=== PATIENT | female | born 1960 ===

== ENCOUNTER 2023-11-27 05:36 | Day surgery (SDC) | payer OTHER ==
[2023-11-22 10:58] VITALS: BP 122/86
[2023-11-22 10:58] LABS: PH,URINE 6.5 (5.0-8.0); URINE APPEARANCE Clear; URINE BILIRRUBIN Negative (NEGATIVE); URINE BLOOD Negative; URINE COLOR Yellow; URINE GLUCOSE Negative (NEGATIVE); URINE KETONE Negative (NEGATIVE); URINE LEUKOCYTE Negative; URINE NITRATE Negative; URINE PROTEIN Negative (NEGATIVE)
[2023-11-22 10:59] LABS: URINE BACTERIA 30.2 uL (0.0-1933); URINE EPITHELIAL CELLS 7.2 uL (0.0-38.8); URINE RBC 6.2 uL (0.0-20.8)
[2023-11-22 11:01] LABS: HEMATOCRIT 44.1 % (36.0-45.00); HEMOGLOBIN 15.1 g/dL (12.0-15.00); MEAN CELL VOLUME 90.4 fL (80.00-100.00); MEAN CORPUSCULAR HEMOGLOBIN 30.9 pg (27.00-32.0); MEAN CORPUSCULAR HGB CONC 34.2 g/dl (32.0-36.0); PLATELET COUNT 184 K/uL (150-450); RED BLOOD COUNT 4.87 M/uL (4.00-6.00); RED CELL DISTRIBUTION WIDTH 13.2 % (11.5-14.5)
[2023-11-22 11:03] LABS: URINE CAST 0.15 uL (0.0-1.40)
[2023-11-22 11:25] LABS: PARTIAL THROMBOPLASTIN TIME 25.6 SECONDS (22.0-34.0); PROTHROMBIN TIME 10.9 SECONDS (9.0-11.5)
[2023-11-22 11:35] LABS: BILIRUBIN TOTAL 0.5 mg/dL (0.3-1.2); CALCIUM 9.3 mg/dL (8.5-10.1); CREATININE SERUM 0.7 mg/dL (0.55-1.02); GFR 85.07; GLOBULINA 3.1 G/DL (2.4-3.5); POTASSIUM 4.03 mEq/L (3.5-5.1); TOTAL PROTEIN 7.1 gm/dL (6.4-8.2)
[~2023-11-27] VITALS: Ht 166.4 cm; Wt 79.4 kg
[~2023-11-27 05:36] MED LIST: COZAAR100 MG PO; CRESTOR40 MG PO; EFFEXOR XR150 MG PO; HYDROCHLOROTHIA25 MG PO; NABUMETONE750 MG PO; SYNTHROID88 MCG PO
[2023-11-27] MEDS ORDERED: CEFAZOLIN SODIUM 1,000 MG VIAL ONE (12:22)
[2023-11-27] MEDS ORDERED: BUPIVACAINE HCL/Mpf 0.5% 10ML VIAL ONE (12:22)
[2023-11-27] MEDS ORDERED: METHYLPREDNISOLONE ACETATE 80 MG/ML VIAL ONE (13:19)
[2023-11-27] MEDS ORDERED: CEFAZOLIN SODIUM 1,000 MG VIAL IV ONE (13:45)
[2023-11-27] MEDS ORDERED: METHYLPREDNISOLONE ACETATE 80 MG/ML VIAL IJ ONE (13:45)
[2023-11-27] MEDS ORDERED: BUPIVACAINE HCL/PF 0.25% 30ML VIAL InF ONE (13:45)
[2023-11-27] MEDS ORDERED: ISOPROPYL ALCOHOL 30 ML OUNCE TOP ONE (13:45)
== END 2023-11-27 16:25 | disposition home or self-care (01) ==
LOC: U 05:36 → CIR.AMB 05:36
PROVIDERS: ATTEND Orthopaedic Surgery Hand Surgery
DX: S63.302A Traumatic rupture of unspecified ligament of left wrist, initial encounter (principal)